=== PATIENT | female | born 1970 | race Caucasian/White ===

== ENCOUNTER 2019-06-11 07:27 | Outpatient (CLI) | payer OTHER ==
--- NOTE | 2019-06-11 08:49 | MRI ---
MRI CERVICAL SPINE NONCONTRAST: DATE: 06/11/2019. HISTORY: A 48-year-old female with cervical radiculopathy. FINDINGS: Cervical spinal cord is normal in size and signal. Cervical spinal canal is diffusely small in calib er on a congenital basis due to developmentally short pedicles. This is exacerbated by degenerative changes. Alignment is normal. Vertebral body heights are maintained. Minimal disc space narrowing at C5-6. No high-grade disk space narrowing at any level. No subluxation. Moderate left facet DJD at C3-4. No severe facet DJD at any level. Calcified ligamentum flavum, contiguous with broad-based disk-osteophytic bar complexes encroach upon the anterior aspect of the spinal canal at all levels f rom C2-3 through C6-7. Straightening of the normal cervical curvature. C1-2: No high-grade central stenosis. C2-3: Mild to moderate central stenosis. Moderate right neural foraminal stenosis. No left neural foraminal stenosis. C3-4: Moderate central spinal canal stenosis. Mild right neural foraminal stenosis. Moderate to se jillian left neural foraminal stenosis. C4-5: Moderate to severe central spinal canal stenosis. Moderate to severe bilateral neural foramin al stenosis. C5-6: Severe central spinal canal stenosis. Severe bilateral neural foraminal stenosis. C6-7: Somewhat severe central spinal canal stenosis. Moderate to severe bilateral neural foraminal stenosis. C7-T1: Normal. IMPRESSION: 1. Developmentally small caliber spinal canal exacerbated by mild cervical spondylosis, resulting in multilevel central spinal canal stenosis and neural foraminal stenosis of varying degrees. 2. Loss of lordosis. POS: OFF
== END 2019-06-11 07:28 | disposition home or self-care (01) ==
LOC: BICMRI 07:27
PROVIDERS: ATTEND Family Medicine
DX: M47.22 Other spondylosis with radiculopathy, cervical region (principal); M48.02 Spinal stenosis, cervical region
CPT/HCPCS: 72141

== ENCOUNTER 2019-08-26 09:04 | Outpatient (CLI) | payer OTHER ==
--- NOTE | 2019-08-26 10:27 | RAD ---
LUMBAR SPINE 3 VIEWS: Date: 08/26/2019 HISTORY: Lumbar pars defect. FINDINGS: Standing neutral, upright, flexion, extension imaging is performed. There is evidence for a pars defe ct at L5. Minimal osteophytosis. No evidence for abnormal translation between flexion or extension. IMPRESSION: Pars defect at L5. No evidence for significant anterolisthesis. No abnormal translation. POS: OFF
== END 2019-08-26 09:05 | disposition home or self-care (01) ==
LOC: RAD 09:04
PROVIDERS: ATTEND Nurse Practitioner Family
DX: M43.06 Spondylolysis, lumbar region (principal)
CPT/HCPCS: 72100

== ENCOUNTER 2019-09-13 09:42 | Outpatient (CLI) | payer OTHER ==
--- NOTE | 2019-09-13 11:33 | MRI ---
MR the lumbar spine without contrast: 09/13/2019 History: Lumbar radiculopathy, back pain with right lower extremity pain COMPARISON: None. TECHNIQUE: Multiplanar multisequence MR images were obtained of lumbar spine without IV contrast FINDINGS: On the basis of 5 lumbar type vertebral bodies, conus medullaris terminates at theL1 level. Sagittal STIR imaging demonstrates no focal area of osseous marrow edema. At the T11-12 level there i s disc space narrowing and mild disc bulge with no associated central canal or neural foraminal stenosis. T12-L1:No significant central canal or neural foraminal stenosis. Mild anterior osteophyte formation. L1-2:There is disc space narrowing with disc desiccation and disc bulge causing a mild degree of cent ral canal stenosis. Mild bilateral facet hypertrophy with mild bilateral neural foraminal stenosis. L2-3:Disc desiccation and mild disc space narrowing. Mild bilateral facet hypertrophy with no signifi cant central canal or neural foraminal stenosis. L3-4:Bilateral facet hypertrophy and hypertrophy of ligamentum flavum. Disc space narrowing with disc desiccation and mild disc bulge. Mild central canal stenosis and mild bilateral neural foraminal stenosis. L4-5:Bilateral facet hypertrophy. There is disc space narrowing and disc desiccation. Annular tear no elizabeth in the left paracentral region. Bilateral facet hypertrophy with mild bilateral neural foraminal stenosis. No significant central canal stenosis. L5-S1:Bilateral facet hypertrophy. Intervertebral disc height and signal intensity within normal limi ts with no significant central canal or neural foraminal stenosis. Image retroperitoneal structures demonstrateno acute findings. IMPRESSION: Lumbar spine degenerative change as described above.
== END 2019-09-13 09:43 | disposition home or self-care (01) ==
LOC: BICMRI 09:42
PROVIDERS: ATTEND Neurological Surgery
DX: M43.06 Spondylolysis, lumbar region (principal); M47.26 Other spondylosis with radiculopathy, lumbar region
CPT/HCPCS: 72148

== ENCOUNTER 2020-04-23 08:06 | Outpatient (CLI) | payer OTHER | END 2020-04-23 08:07 | disposition home or self-care (01) | PROVIDERS: ATTEND Neurological Surgery | DX: M43.00 Spondylolysis, site unspecified (principal) ==